=== PATIENT | female | born 1995 ===

== ENCOUNTER 2019-05-24 09:36 | Outpatient (CLI) | payer OTHER ==
[~2019-05-24] VITALS: Ht 152.4 cm; Wt 70.5 kg
[2019-05-24 09:38] VITALS: BP 112/72
[2019-05-24 10:48] LABS: MICROSCOPIC INDICATED
== END 2019-05-24 11:51 | disposition home or self-care (01) ==
LOC: LDOP 09:36
PROVIDERS: ATTEND Obstetrics & Gynecology
DX: Z34.83 Encounter for supervision of other normal pregnancy, third trimester (principal); Z3A.35 35 weeks gestation of pregnancy
CPT/HCPCS: 59025; 81001; 87086; 99201; G0463

== ENCOUNTER 2019-06-20 21:04 | Inpatient (IN) | payer OTHER ==
[~2019-06-20] VITALS: Ht 152.4 cm; Wt 70.5 kg
[2019-06-20] MEDS: D5%-LACTATED RINGERS 1,000 ML IV SCH (21:33)
[2019-06-20] MEDS ORDERED: OXYTOCIN 30U/ 0.9% NaCL 500ML 500 ML IV ONE (21:33)
[2019-06-20] MEDS ORDERED: OXYTOCIN 30U/ 0.9% NaCL 500ML 500 ML IV PRN (21:41)
[2019-06-20 21:57] LABS: BASOPHILS # (AUTO) 0.05 x10^3/uL (0-0.1); BASOPHILS % (AUTO) 1 % (0-1); EOSINOPHILS # (AUTO) 0.09 x10^3/uL (0-0.4); EOSINOPHILS % (AUTO) 1 % (1-7); LYMPHOCYTES # (AUTO) 2.71 x10^3/uL (1-3.4); LYMPHOCYTES % (AUTO) 36 % (22-44); MD NO; MEAN CORPUSCULAR HEMOGLOBIN 30.3 pg (27.0-34.8); MEAN CORPUSCULAR HGB CONC 33.5 g/dL (32.4-35.8); MEAN CORPUSCULAR VOLUME 90.6 fL (80-100); MEAN PLATELET VOLUME 9.1 fL (7.4-10.4); MONOCYTES # (AUTO) 0.48 x10^3/uL (0.2-0.8); MONOCYTES % (AUTO) 6 % (2-9); NEUTROPHILS # (AUTO) 4.17 x10^3/uL (1.8-6.8); NEUTROPHILS % (AUTO) 56 % (42-75); PLATELET COUNT 287 x10^3/uL (130-400); RED BLOOD COUNT 3.85 x10^6/uL (3.82-5.3); RED CELL DISTRIBUTION WIDTH 13.5 % (9.6-15.2)
[2019-06-20] MEDS: LACTATED RINGERS 1,000 ML IV SCH (21:57)
[2019-06-20] MEDS ORDERED: FENTANYL PF 100 MCG/2ML IV PRN (22:00)
[2019-06-20] MEDS ORDERED: METOCLOPRAMIDE 5 MG/ML, 2ML IVPush PRN (22:00)
[2019-06-20] MEDS ORDERED: TERBUTALINE 1 MG/ML, 1ML SQ PRN (22:00)
[2019-06-20] MEDS ORDERED: ONDANSETRON 2MG/ML, 2ML IVPush PRN (22:00)
[2019-06-20] MEDS ORDERED: FENTANYL PF 100 MCG/2ML IVPush PRN (22:00)
[2019-06-20] MEDS ORDERED: PLEASE ENTER HEIGHT AND WEIGHT MC SCH (22:00)
[2019-06-20] MEDS ORDERED: TERBUTALINE 1 MG/ML, 1ML IVPush PRN (22:00)
[2019-06-20] MEDS ORDERED: SODIUM CITRATE/CITRIC ACID 30 ML UDC PO PRN (22:00)
[2019-06-20] MEDS ORDERED: CALCIUM CARBONATE 500 MG TAB.CHEW PO PRN (22:00)
[2019-06-20] MEDS ORDERED: NEWBORN KIT ONE (22:37)
[2019-06-20 22:57] VITALS: BP 117/76
[2019-06-21] MEDS: LACTATED RINGERS 1,000 ML IV SCH ×3 (04:00→21:33)
[2019-06-21] MEDS: D5%-LACTATED RINGERS 1,000 ML IV SCH ×3 (05:33→21:33)
[2019-06-21] MEDS ORDERED: FENTANYL PF 100 MCG/2ML ONE (11:23)
[2019-06-21] MEDS: OXYTOCIN 30U/ 0.9% NaCL 500ML 500 ML IV SCH (14:23)
[2019-06-21] MEDS ORDERED: MISOPROSTOL 200 MCG TABLET PR PRN (14:30)
[2019-06-21] MEDS ORDERED: OXYcodone/APAP 5/325MG TABLET PO PRN (14:30)
[2019-06-21] MEDS ORDERED: OXYTOCIN 10 UNITS/ML, 1ML IM PRN (14:30)
[2019-06-21] MEDS ORDERED: SIMETHICONE 80 MG CHEW TAB PO PRN (14:30)
[2019-06-21] MEDS ORDERED: DOCUSATE 100 MG CAPSULE PO PRN (14:30)
[2019-06-21] MEDS ORDERED: ONDANSETRON 2MG/ML, 2ML IV PRN (14:30)
[2019-06-21 15:20] VITALS: BP 113/78
[2019-06-21] MEDS: IBUPROFEN 600 MG TABLET PO PRN (16:59)
[2019-06-21 19:18] VITALS: BP 115/79
[2019-06-21 21:03] LABS: BASOPHILS # (AUTO) 0.05 x10^3/uL (0-0.1); BASOPHILS % (AUTO) 0 % (0-1); EOSINOPHILS % (AUTO) 1 % (1-7); LYMPHOCYTES # (AUTO) 3.21 x10^3/uL (1-3.4); LYMPHOCYTES % (AUTO) 21 % (22-44); MD NO; MEAN CORPUSCULAR HEMOGLOBIN 30.8 pg (27.0-34.8); MEAN CORPUSCULAR HGB CONC 34.2 g/dL (32.4-35.8); MEAN CORPUSCULAR VOLUME 90.1 fL (80-100); MEAN PLATELET VOLUME 9.3 fL (7.4-10.4); MONOCYTES # (AUTO) 0.68 x10^3/uL (0.2-0.8); MONOCYTES % (AUTO) 5 % (2-9); NEUTROPHILS # (AUTO) 11.16 x10^3/uL (1.8-6.8); NEUTROPHILS % (AUTO) 73 % (42-75); PLATELET COUNT 249 x10^3/uL (130-400); RED BLOOD COUNT 3.74 x10^6/uL (3.82-5.3); RED CELL DISTRIBUTION WIDTH 13.2 % (9.6-15.2)
[2019-06-22 00:10] VITALS: BP 98/63
[2019-06-22] MEDS: OXYTOCIN 30U/ 0.9% NaCL 500ML 500 ML IV SCH (00:23)
[2019-06-22] MEDS: IBUPROFEN 600 MG TABLET PO PRN ×2 (01:38→08:27)
[2019-06-22 04:20] VITALS: BP 92/64
[2019-06-22] MEDS: D5%-LACTATED RINGERS 1,000 ML IV SCH (05:33)
[2019-06-22] MEDS: LACTATED RINGERS 1,000 ML IV SCH (05:33)
[2019-06-22 07:00] VITALS: BP 111/81
[2019-06-22] MEDS ORDERED: PRENATAL VIT/IRON/FA 1 EACH TABLET PO SCH (09:00)
[2019-06-22] MEDS ORDERED: IBUP-1222 PO (10:29)
[2019-06-22 11:30] VITALS: BP 103/71
== END 2019-06-22 13:46 | disposition home or self-care (01) | DRG 807 ==
LOC: LDIP 21:04 → 2NW 06-21 14:50
PROVIDERS: ADMIT Obstetrics & Gynecology; ATTEND Obstetrics & Gynecology
PROC: 10E0XZZ Delivery of Products of Conception, External Approach (ICD-10-PCS; principal; 2019-06-21)
PROC: 10907ZC Drainage of Amniotic Fluid, Therapeutic from Products of Conception, Via Natural or Artificial Opening (ICD-10-PCS; 2019-06-21)
PROC: 3E033VJ Introduction of Other Hormone into Peripheral Vein, Percutaneous Approach (ICD-10-PCS; 2019-06-21)
DX: O99.354 Diseases of the nervous system complicating childbirth (principal); Z37.0 Single live birth; G43.909 Migraine, unspecified, not intractable, without status migrainosus; Z3A.39 39 weeks gestation of pregnancy; Z90.49 Acquired absence of other specified parts of digestive tract
CPT/HCPCS: 36415; 85025; 86850; 86900; G0378; J3010; J2590; J7120